=== PATIENT | female | born 1980 | race African-American/Black ===

== ENCOUNTER 2022-06-04 13:27 | Emergency (ER) | payer OTHER ==
[~2022-06-04 13:27] MED LIST: Iopamidol 370 76% 100 ML VIAL ONE
[2022-06-04 14:50] LABS: #Eosinphils 0.2 thou/uL (0.0-0.7); #Lymphocytes 1.8 thou/uL (1.20-3.40); #Monocytes 0.8 thou/uL (0.11-0.59); #Neutrophils 3.1 thou/uL (1.40-6.50); %Basophils 0.2 % (0.0-1.0); %Eosinophils 3.3 % (0.0-10.0); %Monocytes 12.9 % (0.0-10.0); %Neutrophils 52.6 % (42.0-75.0); Hemoglobin 11.6 g/dL (12.0-16.0); Mean Corpuscular Hemoglobin 29.8 pg (27.0-31.0); Mean Corpuscular Volume 93.2 fL (78.0-98.0); Platelet Count 239 thou/uL (130-400); RBC Distribution Width 13.9 % (11.5-14.5); White Blood Cell (WBC) Count 5.8 thou/uL (4.8-10.8)
[2022-06-04 15:09] LABS: ALT (SGPT) 13 U/L (8-55); AST (SGOT) 14 U/L (5-34); Albumin 3.8 g/dL (3.5-5.0); Alkaline Phosphatase 70 U/L (40-110); Anion Gap 11 mmol/L (10-20); BUN (Urea Nitrogen) 6 mg/dL (7.0-18.7); Bilirubin, Total 0.3 mg/dL (0.2-1.2); Calc. Creatinine Clearance 0 mL/min (70-130); Calcium 9.1 mg/dL (7.8-10.44); Carbon Dioxide 27 mmol/L (22-29); Chloride 104 mmol/L (98-107); Estimated GFR 98; Globulin 3.5 g/dL (2.4-3.5); Glucose 79 mg/dL (70-105); Potassium 3.9 mmol/L (3.5-5.1); Protein, Total 7.3 g/dL (6.0-8.3); Sodium 138 mmol/L (136-145)
[2022-06-04 15:58] LABS: BHCG - Serum Negative (NEGATIVE); Pregs Control Background? CLEAR/WHITE (CLR/WHITE); Pregs Control Bar Appear? YES (CONTROL BAR)
[2022-06-04] MEDS ORDERED: Fluorescein Opthalmic Strip ONE (17:11)
[2022-06-04] MEDS ORDERED: Haloperidol 1 MG TAB ONE (17:11)
[2022-06-04] MEDS ORDERED: Proparacaine 0.5% Opth 15 ML BOT ONE (17:11)
[2022-06-04] MEDS ORDERED: Cefepime 2 GM VIAL ONE (17:22)
[2022-06-04] MEDS ORDERED: Vancomycin 1.5 GRAM/300 ML BAG 1.5 GM in Premix Bag 1 BAG IVPB SCH (17:30)
[2022-06-04] MEDS ORDERED: Ciprofloxacin 0.3% Ophth Soln 2.5 ml Bottle EA EYE SCH (17:45)
== END 2022-06-04 18:13 | disposition left against medical advice (07) ==
LOC: ERS 13:27
DX: L03.211 Cellulitis of face (principal); H10.9 Unspecified conjunctivitis; F17.210 Nicotine dependence, cigarettes, uncomplicated; G80.9 Cerebral palsy, unspecified
CPT/HCPCS: 36415; 70487; 80053; 83605; 84703; 85025; 87040; J0692; J3370; Q9967